=== PATIENT | male | born 1970 | race Caucasian/White ===

== ENCOUNTER 2020-11-07 18:58 | Emergency (ER) | payer BC, SELFPAY ==
[2020-11-07 19:03] VITALS: BP 136/64; PULSE 66; RESP 20; TEMP 36.8; O2SAT 97
--- NOTE | 2020-11-07 19:25 | ED.GENADULT ---
HPI - General Adult General Chief complaint: Allergic Reaction Stated complaint: Allergic Reaction Time Seen by Provider: 11/07/20 19:14 Source: patient Mode of arrival: ambulatory Limitations: no limitations History of Present Illness HPI narrative: Pt presents for evaluation of allergic reaction. He states his symptoms started while eating dinner tonight. He was eating a brat with sauerkraut. He denies a known history of allergies to these foods. However, he has had allergic reactions to foods which he has previously well tolerated in the past. Currently, his lips feel swollen and he has sinus congestion as well as tearing/irritation of eyes bilaterally. He took 100mg benadryl and his friends with whom he was eating dinner brought him here for further evaluation. He denies any shortness of breath. He is MTF transgender, currently undergoing HRT at [facility]. Related Data Allergies Allergy/AdvReac Type Severity Reaction Status Date / Time No Known Allergies Allergy Verified 11/07/20 19:07 Review of Systems Review of Systems: Narrative: CONSTITUTIONAL: Denies fever, chills, or sweats. EYES: Reports tearing and irritation to both eyes. Denies visual changes, redness. ENT: Reports sinus congestion. Reports lip swelling. Denies rhinorrhea, sore throat, or otalgia. CARDIOVASCULAR: Denies chest pain, palpitations, or edema. RESPIRATORY: Denies cough or dyspnea. GASTROINTESTINAL: Denies abdominal pain, nausea, vomiting, or diarrhea. GENITOURINARY: Denies dysuria or hematuria. SKIN: Denies rash or itching. MUSCULOSKELETAL: Denies back pain, joint pain, or myalgia. NEUROLOGIC: Denies headache, numbness, dizziness, or weakness. PSYCHIATRIC: Denies anxiety or depression. [facility] Past Medical History Medical History Transgender Surgical History Surgical History History of gastric bypass Hx of tonsillectomy Family History Family History Mother No pertinent family history Social History Social History Gender identity (if verbalized by the patient): Male Exam Narrative: Exam Narrative: GENERAL: Well-appearing, well-nourished, and in no acute distress. HEAD: Normocephalic, atraumatic. EYES: PERRLA and EOMI. ENT: Nares clear, no rhinorrhea or epistaxis. Mucous membranes moist. Tonsils and uvula are absent. Bilateral TMs pearly saenz nonbulging NECK: Supple. No adenopathy or masses. No carotid bruits or JVD CHEST: Clear to auscultation. No respiratory distress. No wheezes rales or rhonchi HEART: Regular rate and rhythm. No murmur heard. Normal peripheral pulses. ABDOMEN: Soft, nontender, nondistended, normal active bowel sounds. EXTREMITIES: Normal range of motion. No edema. SKIN: Warm, dry, no rash. NEURO: No focal deficits. Alert and oriented x3. PSYCH: Normal mood and affect. Course Course Emergency Course: This is a 50-year-old male who presented with complaints of lip swelling, eye irritation that started during a meal. Historically, he has responded well to epi-pen. He was given injection of epi in the ER. He was given solumedrol and pepcid. He took benadryl prior to the time of my assessment. Pt was observed after administration of medications. VSS. Pt airway patent and states he feels well enough to go home. Will dc with prednisone, pepcid and benadryl. He has epipen at home. Vital Signs Vital signs: Vital Signs Temperature 36.8 C 11/07/20 19:03 Pulse Rate 66 11/07/20 19:03 Respiratory Rate 20 11/07/20 19:03 Blood Pressure 136/64 11/07/20 19:03 Pulse Oximetry 97 11/07/20 19:03 Temperature 36.8 C 11/07/20 19:03 Pulse Rate 68 11/07/20 19:52 Respiratory Rate 14 11/07/20 19:52 Blood Pressure 130/65 11/07/20 19:52 Pulse Oximetry 95 11/07/20 19:52 Medical Decision
[2020-11-07] MEDS: EPINEPHrine HCL INJ 1 MG/ML AMPUL 0.5 MG IM (19:37)
[2020-11-07] MEDS: methylPREDNISolone SOD SUCC 125 MG VIAL IM (19:37)
[2020-11-07] MEDS: FAMOTIDINE 20 MG TABLET PO (19:39)
[2020-11-07 19:52] VITALS: BP 130/65; PULSE 68; RESP 14; O2SAT 95
[2020-11-07 21:18] VITALS: BP 124/78; PULSE 60; RESP 18; O2SAT 100
== END 2020-11-07 21:31 | disposition home or self-care (01) ==
PROVIDERS: Emergency Provider Nurse Practitioner; PCP Internal Medicine
DX: T78.40XA Allergy, unspecified, initial encounter (principal); Z98.84 Bariatric surgery status
CPT/HCPCS: 96372; 99284; A9270; J0171; J2930